=== PATIENT | female | born 1955 | race Caucasian/White ===

== ENCOUNTER → 2023-04-16 08:12 | Outpatient (REF) | payer MEDICARE, BC, SELFPAY ==
[2023-04-16 10:08] LABS: % Eosinophils 10.7 % (0-6); % Immature Granulocytes 0.3 % (0-0.5); % Lymphocytes 34.4 % (20.5-51.1); % Monocytes 8.1 % (1.7-9.3); % Neutrophils 45.5 % (42.2-75.2); Absolute Basophils 0.1 10^3/uL (0-0.2); Absolute Eosinophils 0.8 10^3/uL (0-0.7); Absolute Lymphocytes 2.5 10^3/uL (1.2-3.4); Absolute Monocytes 0.6 10^3/uL (0.1-0.6); Absolute Neutrophils 3.3 10^3/uL (1.4-6.5); Hematocrit 35.9 % (37.0-47.0); Hemoglobin 12.4 g/dL (12.0-16.0); Mean Corp Hgb Conc. 34.5 g/dL (33.0-37.0); Mean Corpuscular Hgb 33.5 pg (27.0-31.0); Mean Platelet Volume 8.9 fL (7.4-10.4); Nucleated Red Blood Cells % 0 %; Platelet Count 364 10^3/uL (130-400); Red Cell Dist. Width 12.2 % (11.5-14.5); White Blood Cell Count 7.2 10^3/uL (4.8-10.8)
[2023-04-16 10:58] LABS: ALT (SGPT) 21 U/L (0-35); AST (SGOT) 27 U/L (14-36); Albumin 4.2 g/dl (3.5-5.0); Alkaline Phosphatase 44 U/L (38-126); Blood Urea Nitrogen 13 mg/dl (7-17); Calcium 10.1 mg/dl (8.4-10.2); Carbon Dioxide 28 mmol/L (22-30); Chloride 96 mmol/L (98-107); Glucose 94 mg/dl (70-99); HDL Cholesterol 87 mg/dl; LDL Cholesterol, Calculated 76 mg/dl; Potassium 4.3 mmol/L (3.5-5.1); Sodium 135 mmol/L (135-145); Total Bilirubin 0.5 mg/dl (0.2-1.3); Total Cholesterol 188 mg/dl (50-199); Total Protein 6.5 g/dl (6.3-8.2); Triglyceride 125 mg/dl (10-149); Very Low Density Lipoprotein 25 mg/dl (0-30); eGFR > 60.00
[2023-04-16 11:13] LABS: Vitamin D, 25-OH*** 70.5 ng/mL (30-80)
[2023-04-16 11:26] LABS: TSH Reflex To Free T4 3.83 uIU/ml (0.47-4.68)
[2023-04-16 12:01] LABS: Folate > 20.0 ng/ml (2.76-20); Vitamin B12 > 1000 pg/ml (239-931)
== END ==
LOC: HWLAB 08:12
PROVIDERS: ATTENDING PHYSICIAN Family Medicine
DX: E78.2 Mixed hyperlipidemia (principal); E03.9 Hypothyroidism, unspecified; E55.9 Vitamin D deficiency, unspecified; Z00.01 Encounter for general adult medical examination with abnormal findings
CPT/HCPCS: 36415; 80053; 80061; 82306; 82607; 82746; 84443; 85025

== ENCOUNTER → 2023-08-23 08:10 | Outpatient (REF) | payer MEDICARE, BC, SELFPAY ==
[2023-08-23 09:45] LABS: % Basophils 0.6 % (0-2); % Eosinophils 8.6 % (0-6); % Immature Granulocytes 0.6 % (0-0.5); % Lymphocytes 33.5 % (20.5-51.1); % Monocytes 8.9 % (1.7-9.3); % Neutrophils 47.8 % (42.2-75.2); Absolute Eosinophils 0.6 10^3/uL (0-0.7); Absolute Lymphocytes 2.4 10^3/uL (1.2-3.4); Absolute Monocytes 0.6 10^3/uL (0.1-0.6); Absolute Neutrophils 3.4 10^3/uL (1.4-6.5); Hematocrit 39.6 % (37.0-47.0); Hemoglobin 12.9 g/dL (12.0-16.0); Mean Corp Hgb Conc. 32.6 g/dL (33.0-37.0); Mean Corpuscular Hgb 32.7 pg (27.0-31.0); Mean Corpuscular Volume 100.5 fL (81.0-99.0); Nucleated Red Blood Cells % 0 %; Platelet Count 340 10^3/uL (130-400); Red Blood Cell Count 3.94 10^6/uL (4.20-5.40); Red Cell Dist. Width 12.1 % (11.5-14.5); White Blood Cell Count 7.1 10^3/uL (4.8-10.8)
[2023-08-23 10:01] LABS: ALT (SGPT) 23 U/L (0-35); AST (SGOT) 30 U/L (14-36); Albumin 4.6 g/dl (3.5-5.0); Alkaline Phosphatase 44 U/L (38-126); Blood Urea Nitrogen 15 mg/dl (7-17); Calcium 9.6 mg/dl (8.4-10.2); Carbon Dioxide 29 mmol/L (22-30); Chloride 102 mmol/L (98-107); Glucose 90 mg/dl (70-99); HDL Cholesterol 102 mg/dl; LDL Cholesterol, Calculated 95 mg/dl; Potassium 4.3 mmol/L (3.5-5.1); Sodium 140 mmol/L (135-145); Total Bilirubin 0.5 mg/dl (0.2-1.3); Total Cholesterol 217 mg/dl (50-199); Triglyceride 100 mg/dl (10-149); Very Low Density Lipoprotein 20 mg/dl (0-30); eGFR > 60.00
[2023-08-23 10:25] LABS: TSH Reflex To Free T4 2.28 uIU/ml (0.47-4.68)
== END ==
LOC: HWLAB 08:10
PROVIDERS: ATTENDING PHYSICIAN Family Medicine; FAMILY PHYSICIAN Physician Assistant Medical
DX: E03.9 Hypothyroidism, unspecified (principal); E78.2 Mixed hyperlipidemia
CPT/HCPCS: 36415; 80053; 80061; 84443; 85025

== ENCOUNTER → 2023-10-14 10:54 | Outpatient (REF) | payer MEDICARE, BC, SELFPAY | LOC: HWWDC 10:54 | PROVIDERS: ATTENDING PHYSICIAN Obstetrics & Gynecology; FAMILY PHYSICIAN Physician Assistant Medical | DX: Z12.31 Encounter for screening mammogram for malignant neoplasm of breast (principal) | CPT/HCPCS: 77063; 77067 ==

== ENCOUNTER → 2023-10-22 10:00 | Outpatient (REF) | payer MEDICARE, BC, SELFPAY | LOC: HWRAD 10:00 | PROVIDERS: ATTENDING PHYSICIAN Physician Assistant Medical | DX: R91.1 Solitary pulmonary nodule (principal); F17.210 Nicotine dependence, cigarettes, uncomplicated | CPT/HCPCS: 71271 ==

== ENCOUNTER → 2024-01-10 10:53 | Outpatient (REF) | payer MEDICARE, BC, SELFPAY ==
[2024-01-10 15:35] LABS: Blood Urea Nitrogen 12 mg/dl (7-17)
== END ==
LOC: HWLAB 10:53
PROVIDERS: ATTENDING PHYSICIAN Surgery; FAMILY PHYSICIAN Physician Assistant Medical
DX: K62.89 Other specified diseases of anus and rectum (principal)
CPT/HCPCS: 36415; 82565; 84520

== ENCOUNTER → 2024-01-13 12:05 | Outpatient (REF) | payer MEDICARE, BC, SELFPAY | LOC: HWRAD 12:05 | PROVIDERS: ATTENDING PHYSICIAN Surgery; FAMILY PHYSICIAN Physician Assistant Medical | DX: K62.89 Other specified diseases of anus and rectum (principal) | CPT/HCPCS: 74177; Q9967 ==

== ENCOUNTER → 2024-02-25 08:23 | Outpatient (REF) | payer MEDICARE, BC, SELFPAY ==
[2024-02-25 10:36] LABS: ALT (SGPT) 23 U/L (0-35); AST (SGOT) 28 U/L (14-36); Albumin 4.5 g/dl (3.5-5.0); Alkaline Phosphatase 46 U/L (38-126); Blood Urea Nitrogen 14 mg/dl (7-17); Calcium 9.7 mg/dl (8.4-10.2); Carbon Dioxide 28 mmol/L (22-30); Chloride 101 mmol/L (98-107); Glucose 94 mg/dl (70-99); HDL Cholesterol 108 mg/dl; LDL Cholesterol, Calculated 87 mg/dl; Potassium 4.5 mmol/L (3.5-5.1); Sodium 138 mmol/L (135-145); Total Bilirubin 0.4 mg/dl (0.2-1.3); Total Cholesterol 211 mg/dl (50-199); Total Protein 6.9 g/dl (6.3-8.2); Triglyceride 82 mg/dl (10-149); Very Low Density Lipoprotein 16 mg/dl (0-30); eGFR > 60.00
[2024-02-25 11:03] LABS: TSH Reflex To Free T4 1.79 uIU/ml (0.47-4.68)
== END ==
LOC: HWLAB 08:23
PROVIDERS: ATTENDING PHYSICIAN Physician Assistant Medical
DX: I10 Essential (primary) hypertension (principal); E78.2 Mixed hyperlipidemia; E03.9 Hypothyroidism, unspecified
CPT/HCPCS: 36415; 80053; 80061; 84443

== ENCOUNTER → 2024-03-03 11:59 | Outpatient (REF) | payer MEDICARE, BC, SELFPAY ==
[2024-03-03 16:19] LABS: % Basophils 0.7 % (0-2); % Eosinophils 5.5 % (0-6); % Immature Granulocytes 0.5 % (0-0.5); % Lymphocytes 21.6 % (20.5-51.1); % Monocytes 11.8 % (1.7-9.3); % Neutrophils 59.9 % (42.2-75.2); Absolute Basophils 0.1 10^3/uL (0-0.2); Absolute Eosinophils 0.4 10^3/uL (0-0.7); Absolute Lymphocytes 1.7 10^3/uL (1.2-3.4); Absolute Monocytes 0.9 10^3/uL (0.1-0.6); Absolute Neutrophils 4.6 10^3/uL (1.4-6.5); Hematocrit 36.2 % (37.0-47.0); Hemoglobin 12.1 g/dL (12.0-16.0); Mean Corp Hgb Conc. 33.4 g/dL (33.0-37.0); Mean Corpuscular Hgb 33.3 pg (27.0-31.0); Mean Corpuscular Volume 99.7 fL (81.0-99.0); Mean Platelet Volume 8.9 fL (7.4-10.4); Nucleated Red Blood Cells % 0 %; Platelet Count 390 10^3/uL (130-400); Red Blood Cell Count 3.63 10^6/uL (4.20-5.40); Red Cell Dist. Width 12.3 % (11.5-14.5); White Blood Cell Count 7.6 10^3/uL (4.8-10.8)
[2024-03-03 16:26] LABS: Blood Urea Nitrogen 12 mg/dl (7-17); Calcium 9.5 mg/dl (8.4-10.2); Carbon Dioxide 27 mmol/L (22-30); Chloride 98 mmol/L (98-107); Glucose 108 mg/dl (70-99); Potassium 4.2 mmol/L (3.5-5.1); Sodium 135 mmol/L (135-145); eGFR > 60.00
== END ==
LOC: HWLAB 11:59
PROVIDERS: ATTENDING PHYSICIAN Orthopaedic Surgery; FAMILY PHYSICIAN Physician Assistant Medical
DX: Z01.818 Encounter for other preprocedural examination (principal)
CPT/HCPCS: 36415; 80048; 85025; 93005

== ENCOUNTER → 2024-06-18 10:19 | Outpatient (REF) | payer MEDICARE, BC, SELFPAY | LOC: HWRAD 10:19 | PROVIDERS: ATTENDING PHYSICIAN Obstetrics & Gynecology; FAMILY PHYSICIAN Physician Assistant Medical | DX: M81.0 Age-related osteoporosis without current pathological fracture (principal) | CPT/HCPCS: 77080 ==

== ENCOUNTER → 2024-08-17 07:53 | Outpatient (REF) | payer MEDICARE, BC, SELFPAY ==
[2024-08-17 10:21] LABS: TSH Reflex To Free T4 1.32 uIU/ml (0.47-4.68)
[2024-08-17 10:56] LABS: ALT (SGPT) 19 U/L (0-35); AST (SGOT) 24 U/L (14-36); Albumin 4.9 g/dl (3.5-5.0); Alkaline Phosphatase 44 U/L (38-126); Blood Urea Nitrogen 12 mg/dl (7-17); Calcium 9.7 mg/dl (8.4-10.2); Carbon Dioxide 25 mmol/L (22-30); Chloride 104 mmol/L (98-107); Glucose 99 mg/dl (70-99); Potassium 4.7 mmol/L (3.5-5.1); Sodium 137 mmol/L (135-145); Total Bilirubin 0.5 mg/dl (0.2-1.3); Total Cholesterol 214 mg/dl (50-199); Total Protein 7.2 g/dl (6.3-8.2); Triglyceride 70 mg/dl (10-149); Very Low Density Lipoprotein 14 mg/dl (0-30); eGFR > 60.00
[2024-08-17 11:32] LABS: HDL Cholesterol 125 mg/dl; LDL Cholesterol, Calculated 75 mg/dl
== END ==
LOC: HWLAB 07:53
PROVIDERS: ATTENDING PHYSICIAN Physician Assistant Medical
DX: I10 Essential (primary) hypertension (principal); E78.2 Mixed hyperlipidemia; I25.10 Atherosclerotic heart disease of native coronary artery without angina pectoris; E03.9 Hypothyroidism, unspecified
CPT/HCPCS: 36415; 80053; 80061; 84443

== ENCOUNTER 2024-09-09 06:16 | Day surgery (SDC) | payer MEDICARE, BC, SELFPAY | END 2024-09-09 09:15 | disposition home or self-care (01) | LOC: GI 06:16 | PROVIDERS: ATTENDING PHYSICIAN Surgery | DX: Z12.11 Encounter for screening for malignant neoplasm of colon (principal); K57.30 Diverticulosis of large intestine without perforation or abscess without bleeding; K64.9 Unspecified hemorrhoids; Z86.0100 Personal history of colon polyps, unspecified | CPT/HCPCS: G0105 ==

== ENCOUNTER → 2024-10-14 09:53 | Outpatient (REF) | payer MEDICARE, BC, SELFPAY | LOC: HWWDC 09:53 | PROVIDERS: ATTENDING PHYSICIAN Obstetrics & Gynecology; FAMILY PHYSICIAN Physician Assistant Medical | DX: Z12.31 Encounter for screening mammogram for malignant neoplasm of breast (principal) | CPT/HCPCS: 77063; 77067 ==

== ENCOUNTER → 2024-10-19 10:51 | Outpatient (REF) | payer MEDICARE, BC, SELFPAY | LOC: HWRAD 10:51 | PROVIDERS: ATTENDING PHYSICIAN Physician Assistant Medical | DX: R91.1 Solitary pulmonary nodule (principal); Z87.891 Personal history of nicotine dependence | CPT/HCPCS: 71250 ==

== ENCOUNTER 2025-01-12 14:20 | Emergency (ER) | payer MEDICARE, BC, SELFPAY ==
[2025-01-12 14:22] VITALS: BP 174/102
[2025-01-12 15:05] LABS: Hematocrit 39.6 % (37.0-47.0); Hemoglobin 13.3 g/dL (12.0-16.0); Mean Corp Hgb Conc. 33.6 g/dL (33.0-37.0); Mean Corpuscular Volume 98.3 fL (81.0-99.0); Nucleated Red Blood Cells % 0 %; Platelet Count 397 10^3/uL (130-400); Red Cell Dist. Width 12.1 % (11.5-14.5)
[2025-01-12 15:12] LABS: Urine Character Clear (Clear)
[2025-01-12 15:14] LABS: ALT (SGPT) 23 U/L (0-35); AST (SGOT) 28 U/L (14-36); Albumin 5.1 g/dl (3.5-5.0); Alkaline Phosphatase 62 U/L (38-126); Blood Urea Nitrogen 11 mg/dl (7-17); Calcium 9.9 mg/dl (8.4-10.2); Carbon Dioxide 29 mmol/L (22-30); Chloride 99 mmol/L (98-107); Glucose 123 mg/dl (70-99); Potassium 4.2 mmol/L (3.5-5.1); Sodium 137 mmol/L (135-145); Total Protein 7.9 g/dl (6.3-8.2); eGFR > 60.00
--- NOTE | 2025-01-12 18:00 | ED.GENMED ---
History of Present Illness
<Franky Mejia MD, Resident - Last Filed: 01/12/25 20:17>
General
Chief Complaint: Anal/Rectal Problem
Source: patient and significant other
Time Seen by Provider: 01/12/25 17:24
History of Present Illness
History of Present Illness:
Patient is a 69-year-old female with PMH of rectocele (grade 1) and hemorrhoids who presents to the [place] ED with complaint of pelvic pressure. Patient is experience pelvic pressure for nearly a year and was diagnosed with a rectocele in
October. Patient has had chronic pelvic pressure that fluctuates between discomfort and pain throughout a given day. The pressure is typically worse after bowel movements. Associated symptoms include frequency, constipation, diarrhea, and fatigue.
With the last 4 to 5 days, patient has developed dysuria. No fever, chills, hematochezia, hematuria, abdominal pain, or urinary or bowel incontinence. The pelvic discomfort and pain is interfering with the patient's quality of life and causing
her significant distress. Patient had 6/10 intensity pelvic pain this morning, which prompted her to present to the ED. Patient follows with colorectal surgery (Dr. Smiley) and urogynecology (Dr. Rascon). Treatments for rectocele thus far
include weekly physical therapy to strengthen her pelvic floor, sitz baths, Metamucil, and recent vaginal suppositories with diazepam. These interventions have provided minimal relief to the patient.
Past History
<Franky Mejia MD, Resident - Last Filed: 01/12/25 20:17>
Past History
ED Past Medical History: Other (Rectocele (grade 1)) and Other (Hemorrhoids)
ED Past Surgical History: Other (Hemorrhoid band ligation)
Social History
Personal:
Review of Systems
<Franky Mejia MD, Resident - Last Filed: 01/12/25 20:17>
Review of Systems
Constitutional: Reports fatigue; Denies fever or chills
ABD/GI: Reports diarrhea and constipated; Denies abdominal pain, nausea, vomiting, bloody stools or black stools
: Reports dysuria and frequency; Denies incontinence, difficulty voiding, urgency or bleeding
Neurological: Denies headache
Phy Exam
<Franky Mejia MD, Resident - Last Filed: 01/12/25 20:17>
Physical Exam
Physical Exam:
General: NAD. Conversant. Well-appearing, though tearful.
GI: Abdomen soft, nontender. Nondistended. No masses. No prolapse appreciated on rectal exam with Valsalva. No anal bleeding or discharge. External hemorrhoids present. Perineum without masses, fissures, erythema, swelling, fluctuance, or TTP.
: No prolapse appreciated on pelvic exam with Valsalva. No vaginal bleeding or discharge. No vulvar or vaginal pain on palpation.
Neuro: A&O x 3. No focal deficits. CN II through XII grossly intact.
Course
<Franky Mejia MD, Resident - Last Filed: 01/12/25 20:17>
Orders/Labs/Results
Orders:
Orders
01/12/25 14:44
Complete Blood Count/With Diff Urgent
Comprehensive Metabolic Panel Urgent
Urinalysis Reflex To Culture Urgent
Date Specimen was Collected: 01/12/25
Time Specimen was Collected: 14:32
01/12/25 18:12
CT Abd/pelvis W Iv Cont Urgent
Comment:
Reason For Exam: rectal pain w/ hx of grade 1 rectocele
Abnormal Lab Results
01/12/25
14:44
RBC 4.03 L 10^6/uL
(4.20-5.40)
MCH 33.0 H pg
(27.0-31.0)
Absolute Neuts (auto) 6.9 H 10^3/uL
(1.4-6.5)
Absolute Monos (auto) 0.9 H 10^3/uL
(0.1-0.6)
Lymphocytes % 17.2 L %
(20.5-51.1)
Creatinine 0.5 L mg/dL
(0.6-1.0)
Glucose 123 H mg/dl
(70-99)
Albumin 5.1 H g/dl
(3.5-5.0)
01/12/25 14:44
01/12/25 14:44
Vital Signs
Initial and Last Documented VS:
Initial Vital Signs
Temp Pulse Resp BP Pulse Ox
97.5 F 108 20 174/102 99
01/12/25 14:22 01/12/25 14:22 01/12/25 14:22 01/12/25 14:22 01/12/25 14:22
Last Documented Vital Signs
Temp Pulse Resp BP Pulse Ox
97.5 F 108 20 166/84 99
01/12/25 14:22 01/12/25 14:22 01/12/25 14:22 01/12/25 20:41 01/12/25 18:11
<Zoey Boudreaux, - Last Filed: 01/12/25 21:03>
Orders/Labs/Results
Orders:
Orders
01/12/25 14:44
Complete Blood Count/With Diff Urgent
Comprehensive Metabolic Panel Urgent
Urinalysis Reflex To Culture Urgent
Date Specimen was Collected: 01/12/25
Time Specimen was Collected: 14:32
01/12/25 18:12
CT Abd/pelvis W Iv Cont Urgent
Comment:
Reason For Exam: rectal pain w/ hx of grade 1 rectocele
Abnormal Lab Results
01/12/25
14:44
RBC 4.03 L 10^6/uL
(4.20-5.40)
MCH 33.0 H pg
(27.0-31.0)
Absolute Neuts (auto) 6.9 H 10^3/uL
(1.4-6.5)
Absolute Monos (auto) 0.9 H 10^3/uL
(0.1-0.6)
Lymphocytes % 17.2 L %
(20.5-51.1)
Creatinine 0.5 L mg/dL
(0.6-1.0)
Glucose 123 H mg/dl
(70-99)
Albumin 5.1 H g/dl
(3.5-5.0)
01/12/25 14:44
01/12/25 14:44
Vital Signs
Initial and Last Documented VS:
Initial Vital Signs
Temp Pulse Resp BP Pulse Ox
97.5 F 108 20 174/102 99
01/12/25 14:22 01/12/25 14:22 01/12/25 14:22 01/12/25 14:22 01/12/25 14:22
Last Documented Vital Signs
Temp Pulse Resp BP Pulse Ox
97.5 F 108 20 166/84 99
01/12/25 14:22 01/12/25 14:22 01/12/25 14:22 01/12/25 20:41 01/12/25 18:11
<Franky Mejia MD, Resident - Last Filed: 01/12/25 20:17>
MDM/Problems Addressed
Differential Diagnosis Includes:
Persistent/worsening rectocele
Anorectal abscess
Malignancy
Proctitis
Constipation
UTI
MDM/Problems Addressed:
Assessment: Patient is 69-year-old female with PMH of rectocele and hemorrhoids who presents to the [place] ED with persistent and mildly worsening pelvic discomfort/pain associated with constipation, diarrhea, fatigue, frequency, and recent
onset dysuria without abdominal pain or rectal bleeding. Physical exam unremarkable, hypertensive (174/102), mildly tachycardic (108). No leukocytosis, UA unremarkable. CTAP shows no significant rectal wall thickening, perirectal soft tissue
stranding, bowel obstruction, diverticulitis, or abscess. Distended biliary ductal system, though LFTs are normal. Suspect persistent/worsening rectocele.
Plan:
#Rectal pressure
Labs: CBC, CMP, UA
Imaging: CTAP w/ IV contrast
Recommend follow-up with Dr. Smiley for further evaluation of rectocele
<Franky Mejia MD, Resident - Last Filed: 01/12/25 20:17>
*Pulse Oximetry
SaO2: 99
Oxygen Mode of Delivery: Room air
Patient hypoxic: no
*Critical Care Note
Total Time (30-74mins, 75-104mins- exclusive of procedures): Not Applicable
ED Attending Note
<Franky Mejia MD, Resident - Last Filed: 01/12/25 20:17>
-
Portions of this chart may have been created with voice recognition software.� Occasional wrong word or��sound alike� substitutions may have occurred due to the inherent limitations of voice recognition software.
<Zoey Boudreaux, - Last Filed: 01/12/25 21:03>
ED Attending Note
Patient seen and examined by attending physician: Yes
I performed the substantive portion of visit, reviewed & personally made and approve the management plan that is documented in note by myself or WALLY.: Yes
I performed a history and physical exam of patient and discussed management with resident, I reviewed resident's note and agree with documented findings and plan of care.: Yes
ED Attending Note:
69-year-old female presents to the ER for further evaluation of rectal pain which she has had ongoing for a while, however more bothersome in the morning than usual. She is currently undergoing physical therapy. She has been seen by Dr. Smiley for
a diagnosed grade 1 rectocele. Lead she also had a colonoscopy earlier this year which was reportedly normal. She denies fevers or chills. She has been following a bowel regimen and been having regular bowel movements. She has not taken any
medications for her discomfort and reports that the pain has improved throughout the day. Vital signs reviewed, patient is awake, alert, appears no acute distress, mucous membranes moist, conjunctiva pink, abdomen is soft and nontender, rectal exam
performed by resident physician as per his physical exam note, GCS is 15. I discussed with patient and present at bedside very reassuring workup in the emergency department-no evidence for worrisome pelvic etiology of discomforts. I
encourage patient to continue her bowel regimen and PT and to follow-up with her specialists and PCP. She expressed understanding of discharge plan and had no questions prior to leaving the department.
Discharge Plan
Departure
Patient Disposition: Home (Routine Discharge)
Date of Disposition: 01/12/25
Time of Disposition: 20:18
Patient with high blood pressure during this ER visit?: Yes
Condition: Good
Covid-19: Not Applicable
Discharge Problem:
Female pelvic pain
Instructions: Pelvic Floor Dysfunction (DC), Pelvic pain - ED (DC), BLOOD PRESSURE
Prescriptions:
No Action
acetaminophen-codeine 300-15 mg tablet
1 tab PO Q6H PRN (Reason: Pain) Qty: 12 0RF
Referrals:
Franky Smiley MD [Active, ColoRectal]
Emigdio Mcintosh PA-C [Family Provider]
Activity Restrictions/Additional Instructions:
Recommend follow-up with Dr. Smiley in the outpatient setting for further evaluation of rectocele
Recommend follow-up with PCP to discuss emergency department CT scan results
Return to the ED with worsening pelvic/rectal pain, fever, or any other acute symptoms
Interventions
Interventions:
*Risk Screen - Suicide Last Done: 01/12/25 14:22
*General Assessment Last Done: 01/12/25 17:23
*Neglect/Abuse Screening Last Done: 01/12/25 14:22
*ED- Fall Risk Assessment Last Done: 01/12/25 17:22
*ED COVID-19 Vaccine History Last Done: 01/12/25 17:23
*ED Influenza Vaccine History Last Done: 01/12/25 17:23
*Nursing Disposition Last Done: 01/12/25 20:41
BJ-Jgrsmw-Itfiotqdar Assessment Last Done: 01/12/25 20:44
ED-Skin Assessment Last Done: 01/12/25 17:22
Discharge Date and Time
Discharge Date/Time: 01/12/25 20:44
Print Language: BANGLADESHI
[2025-01-12 20:41] VITALS: BP 166/84
== END 2025-01-12 20:44 | disposition home or self-care (01) ==
LOC: EMR 14:20
PROVIDERS: Emergency Medicine; EMERGENCY PHYSICIAN Emergency Medicine; FAMILY PHYSICIAN Physician Assistant Medical
DX: R10.20 Pelvic and perineal pain unspecified side (principal); R03.0 Elevated blood-pressure reading, without diagnosis of hypertension; R00.0 Tachycardia, unspecified; N81.6 Rectocele; K64.4 Residual hemorrhoidal skin tags
CPT/HCPCS: 99284; 74177; 80053; 81003; 85025; Q9967

== ENCOUNTER → 2025-03-03 09:38 | Outpatient (REF) | payer MEDICARE, BC, SELFPAY ==
[2025-03-03 10:18] LABS: Hematocrit 37.5 % (37.0-47.0); Hemoglobin 12.8 g/dL (12.0-16.0); Mean Corp Hgb Conc. 34.1 g/dL (33.0-37.0); Mean Corpuscular Volume 96.4 fL (81.0-99.0); Nucleated Red Blood Cells % 0 %; Platelet Count 407 10^3/uL (130-400); Red Cell Dist. Width 12.3 % (11.5-14.5)
[2025-03-03 11:17] LABS: Blood Urea Nitrogen 10 mg/dl (7-17); Glucose 89 mg/dl (70-99)
[2025-03-03 11:18] LABS: ALT (SGPT) 22 U/L (0-35); AST (SGOT) 29 U/L (14-36); Albumin 4.7 g/dl (3.5-5.0); Alkaline Phosphatase 50 U/L (38-126); Calcium 9.7 mg/dl (8.4-10.2); Carbon Dioxide 27 mmol/L (22-30); Chloride 100 mmol/L (98-107); Potassium 4.4 mmol/L (3.5-5.1); Sodium 134 mmol/L (135-145); Total Protein 7.4 g/dl (6.3-8.2); Very Low Density Lipoprotein 17 mg/dl (0-30); eGFR > 60.00
[2025-03-03 11:31] LABS: HDL Cholesterol 117 mg/dl; LDL Cholesterol, Calculated 74 mg/dl
== END ==
LOC: REG 09:38
PROVIDERS: ATTENDING PHYSICIAN Physician Assistant Medical
DX: I10 Essential (primary) hypertension (principal); E78.2 Mixed hyperlipidemia; E03.9 Hypothyroidism, unspecified; I25.10 Atherosclerotic heart disease of native coronary artery without angina pectoris; F41.9 Anxiety disorder, unspecified; K21.9 Gastro-esophageal reflux disease without esophagitis
CPT/HCPCS: 36415; 80053; 80061; 84443; 85025